=== PATIENT | male | born 1985 | race African-American/Black ===

== ENCOUNTER 2022-06-21 21:47 | Emergency (ER) | payer OTHER, SELFPAY ==
--- NOTE | ~2022-06-21 | XR_ITS ---
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 No cardiac hx per pt Comparison: None available. RESULT: Lines, tubes, and devices: None. Lungs and pleura: Clear. Cardiomediastinal silhouette: Unremarkable. Other: No acute osseous or upper abdominal finding. IMPRESSION: No acute cardiopulmonary process. Reviewed, dictated and finalized at location K. TRICAL LOGGING ENGINEER
--- NOTE | ~2022-06-21 | CT_ITS ---
Clinical Indication: Chest pain, shortness of breath CT Scan of the Chest with Contrast: Technique: Contiguous sections were acquired throughout the chest after intravenous administration of 100 cc of Omnipaque 350. Dose reduction technique was used on this scan by utilizing automated expos ure control and iterative reconstruction technique. The dose-length product (DLP) was 275.71 mGy-cm. Findings: There is no evidence of any significant mediastinal, hilar or axillary lymphadenopathy. There is no f illing defect in the pulmonary arterial tree to suggest pulmonary embolus. There is no evidence of ao rtic dissection or aneurysm. There is no evidence of pleural or pericardial effusion. The lungs are clear. No pulmonary nodules or infiltrates are noted. Images through the upper abdomen reveal diffuse fatty infiltration of the liver. Impression: No evidence of pulmonary embolus, aortic dissection, or aortic aneurysm. Clear lungs. Diffuse fatty infiltration of the liver. Reviewed, dictated and finalized at [facility]. UCT MANAGENT INTERN Impression: No evidence of pulmonary embolus, aortic dissection, or aortic aneurysm. Clear lungs. Diffuse fatty infiltration of the liver.
[2022-06-21 21:53] VITALS: BP 150/93; PULSE 108; RESP 17; TEMP 36.7; O2SAT 100
--- NOTE | 2022-06-21 21:53 | ECG_ITS ---
Measurements Intervals Garber Rate: 107 P: 74 MA: 158 QRS: -45 QRSD: 97 T: 70 QT: 347 QTc: 464 Interpretive Statements SINUS TACHYCARDIA LEFT ANTERIOR FASCICULAR BLOCK ABNORMAL ECG NO PREVIOUS ECG AVAILABLE FOR COMPARISON Electronically Signed On 06-22-2022 6:39:35 TAX COLLECTION COORDINATOR by Singh Zamora D.O.
[2022-06-21 22:02] LABS: Basophils Percent Auto 0.6 % (0.2-1.2); Eosinophils Percent Auto 0.2 % (0-4.4); Hematocrit 40.6 % (42.0-52.0); Immature Granulocyte Absolute 0.02 K/mm3 (0.00-0.031); Immature Granulocyte Percent A 0.3 % (0-0.5); Lymphocytes Absolute Auto 1.89 K/mm3 (0.9-3.2); Lymphocytes Percent Auto 29.6 % (18.3-44.2); Mean Corpuscular Volume 71.7 fl (80-100); Mean Platelet Volume 9.9 fl (7.4-10.4); Monocytes Absolute Auto 0.6 K/mm3 (0.1-0.6); Monocytes Percent Auto 9.6 % (2.6-8.5); Neutrophils Absolute Auto 3.8 K/mm3 (1.3-6.7); Neutrophils Percent Auto 59.7 % (45.5-73.1); Nucleated Red Blood Cells Perc 0.3 % (0.0-0.2); Platelet Count Result 247 k/mm3 (150-375); Red Blood Count 5.66 M/mm3 (4.6-6.20); Red Cell Distribution Width 18.3 % (11.5-14.5); White Blood Count 6.4 K/mm3 (4.5-10.0)
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
[2022-06-21 22:12] LABS: Alanine Aminotransferase 25 U/L (6-50); Albumin Level 4.6 g/dL (3.5-5.1); Alkaline Phosphatase 78 U/L (38-126); Anion Gap 10 mmol/L (8-16); Aspartate Amino Transferase 36 U/L (17-59); Bilirubin,Total 1.5 mg/dL (0.2-1.3); Blood Urea Nitrogen 11 mg/dL (9-20); Calcium 8.7 mg/dL (8.4-10.2); Carbon Dioxide 26 mmol/L (22-30); Chloride 99 mmol/L (98-107); Estimated CRCL calculation 78 ml/min; Estimated Glomerular Filt Rate > 60; Glucose 68 mg/dL (65-110); Lipase 58 U/L (23-300); Potassium 4.1 mmol/L (3.4-5.0); Sodium 135 mmol/L (137-145)
[2022-06-21 22:18] LABS: Prothrombin Time 12.7 Seconds (11.1-14.7)
[2022-06-21 22:19] LABS: Partial Thromboplastin Time 29.6 SECONDS (22.3-36.8)
[2022-06-21 22:23] LABS: Troponin I < 0.012 ng/mL (0.000-0.034)
[2022-06-21 22:32] LABS: Platelet Estimate Adequate (Adequate)
[2022-06-21 22:33] LABS: Hypochromasia 2+ (NORMAL); Microcytosis 1+ (NORMAL)
[2022-06-21 22:34] LABS: Schistocytes 1+ (NORMAL); Target Cells 1+ (NORMAL)
[2022-06-21 22:49] LABS: D Dimer 0.52 ug/mL (<0.48)
--- NOTE | 2022-06-21 22:55 | ECG_ITS ---
Measurements Intervals [place] Rate: 111 P: 143 SC: 156 QRS: -20 QRSD: 88 T: 119 QT: 339 QTc: 463 Interpretive Statements SINUS OR ECTOPIC ATRIAL TACHYCARDIA NONSPECIFIC ST-T WAVE ABNORMALITY- HIGH LATERAL LEADS ABNORMAL ECG COMPARED TO ECG 06/21/2022 21:58:46 ST-T WAVE ABNORMALITY NOW PRESENT Electronically Signed On 06-22-2022 6:41:26 PROPERTY MANAGER by Singh Zamora D.O.
[2022-06-21 22:59] VITALS: BP 145/93; PULSE 112; RESP 18; O2SAT 100
[2022-06-21 23:32] VITALS: BP 137/88; PULSE 116; RESP 23; O2SAT 98
[2022-06-21] MEDS: SODIUM CHLORIDE 0.9% IV 1,000 ML 999 ML IV CONT (23:32)
[2022-06-21] MEDS: NITROGLYCERIN SL 0.4 MG TABLET SUBLINGUAL (23:32)
[2022-06-21 23:45] VITALS: BP 133/80
[2022-06-21 23:55] VITALS: BP 125/72; PULSE 113
[2022-06-22 00:43] VITALS: BP 125/76; PULSE 115; RESP 19; O2SAT 99
[2022-06-22 01:47] LABS: Troponin I < 0.012 ng/mL (0.000-0.034)
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
[2022-06-22 04:08] LABS: Appearance Urine Clear (Clear); Bacteria Urine None Seen /hpf; Bilirubin Urine Negative (Negative); Blood Urine 1+ (Negative); Color Urine Yellow (Yellow); Glucose Urine UA Negative (Negative); Ketones Urine 2+ mg/dL (Negative); Leukocyte Esterase Ur Negative LEU/UL (Negative); Nitrate Urine Negative (Negative); Non Pathogenic Casts 0-2; Protein Urine Trace mg/dL (Negative); Squamous Epithelial Cell Urine None seen /hpf (Few); WBC Urine 0-5 /hpf
[2022-06-22 04:10] LABS: Acetaminophen < 10 ug/mL (10-30); Ethanol < 10 mg/dL (<10); Salicylate < 1.0 mg/dL (2-20)
[2022-06-22 04:16] LABS: Amphetamine Screen Urine Negative (Negative); Barbiturate Screen Urine Negative (Negative); Benzodiazepines Screen Urine Negative (Negative); Cannabinoid Screen Urine Negative (Negative); Cocaine Screen Urine Positive (Negative); Methadone Screen Urine Negative (Negative); Opiate Screen Urine Negative (Negative); Phencyclidine Screen Urine Negative (Negative)
[2022-06-22 04:21] LABS: Specific Grav Ur 1.085 (1.001-1.035)
[2022-06-22 04:23] LABS: Troponin I < 0.012 ng/mL (0.000-0.034)
[2022-06-22 04:37] LABS: Add Urine Microscopic? YES
[2022-06-22 04:45] LABS: Thyroid Stimulating Hormone 0.393 uIU/mL (0.465-4.680)
[2022-06-22 06:11] LABS: Influenza A QL RT-PCR Negative (Negative); Influenza B QL RT-PCR Negative (Negative); SARS-CoV-2 RNA PCR Negative
--- NOTE | 2022-06-22 06:30 | PC.NURSE ---
Crisis called and notified of patient status, they are sending someone here to evaluate.
--- NOTE | 2022-06-22 07:20 | PC.NURSE ---
Pt sleeping upon shift change assessment.
--- NOTE | 2022-06-22 10:40 | PC.NURSE ---
spoke with magali at [facility], [facility] facility accepts this patient. accepting physician is Fotammych and pt to intake upon arrival. Per request she would like transport to leave by or after 1200 to then arrive by 1430 or after.
[2022-06-22 11:19] VITALS: BP 126/92; PULSE 110; RESP 16; TEMP 36.9; O2SAT 100
--- NOTE | 2022-06-22 17:18 | PC.NURSE ---
1212 called [facility] no truck to do transfers, 1213 called [facility] no truck for long distance transfers, 1227 called [facility] no long distance truck, 1222 called [facility], waiting for approval, 1344, [facility], not available, 1440 charge nurse getting approval to call [facility], called [facility] 1548 here 1652. Cancelled [facility]02 for trip 06/23/22 [id number].
== END 2022-06-22 17:14 ==
PROVIDERS: Physician Assistant; Emergency Provider General Practice
DX: R07.89 Other chest pain (principal); R45.850 Homicidal ideations; F32.9 Major depressive disorder, single episode, unspecified; R00.0 Tachycardia, unspecified; Z20.822 Contact with and (suspected) exposure to COVID-19; F17.210 Nicotine dependence, cigarettes, uncomplicated
CPT/HCPCS: 36415; 71046; 71275; 80053; 80307; 81001; 83690; 84443; 84484; 85025; 85380; 85610; 85730; 87636; 93005; 96360; 99285; A9270; J7030; Q9967